=== PATIENT | female | born 1955 | race Caucasian/White ===

== ENCOUNTER 2019-04-17 08:51 | Day surgery (SDC) | payer OTHER ==
[2019-04-16 15:08] VITALS: BMI 40.4
--- NOTE | 2019-04-17 07:32 | OP ---
Operative Note - Note: Operative Date: 04/17/19 Pre-Operative Diagnosis: Right rotator cuff tear, impingement, biceps tendinopathy Operation: Right shoulder arthroscopy with rotator cuff tear, subacromial decompression, biceps tenodesis Implants: Single loaded q-fix x2, double loaded q-fix x1, 2 healicoil anchors and 2 multifix anchors Post-Operative Diagnosis: Same as Pre-op Surgeon: Jimmy Taylor Account Maintenance Representative: Rubina Gardner Anesthesiologist/ATHLETIC GEAR CUSTODIAN: Dawit Chen Anesthesia: General (Regional plus sedation) Operative Report Dictated: Yes
[2019-04-17] MEDS ORDERED: BUPIVACAINE HCL/PF 0.5% (5 MG/ML) 30 ML VIAL IJ ONE (09:19)
[2019-04-17] MEDS ORDERED: MIDAZOLAM HCL 2 MG/2 ML SINGLE DOSE VIAL ONE ×3 (09:19→11:44)
[2019-04-17] MEDS ORDERED: PROPOFOL 20 ML ONE ×3 (09:28→12:37)
[2019-04-17] MEDS ORDERED: ceFAZolin SODIUM 1 GM VIAL ONE (10:32)
[2019-04-17] MEDS ORDERED: TRANEXAMIC ACID 1000 MG/10 ML VIAL ONE (11:28)
[2019-04-17] MEDS ORDERED: LIDOCAINE 1%/EPI 1:100000 (20 ML MULTI DOSE VIAL) ONE (13:32)
[2019-04-17] MEDS ORDERED: LIDOCAINE 1%/EPI 1:100000 (20 ML MULTI DOSE VIAL) IJ ONE ×2 (13:35)
[2019-04-17] MEDS ORDERED: oxyCODONE HCL 5 MG TABLET PO PRN ×2 (14:20)
[2019-04-17] MEDS ORDERED: ONDANSETRON 4 MG/2 ML VIAL IVPUSH PRN (14:20)
[2019-04-17] MEDS ORDERED: PROMETHAZINE HCL 25 MG/1 ML VIAL IVPUSH PRN (14:20)
[2019-04-17 14:45] VITALS: TEMP 97.6
[2019-04-17 16:49] VITALS: BP 115/80; PULSE 86
--- NOTE | 2019-04-17 18:54 | OP ---
DATE OF OPERATION: 04/17/2019 PREOPERATIVE DIAGNOSIS: Right shoulder rotator cuff tear, impingement, biceps tendinopathy. POSTOPERATIVE DIAGNOSIS: Right shoulder rotator cuff tear, impingement, biceps tendinopathy. PROCEDURE: Right shoulder arthroscopy with biceps tenodesis, rotator cuff repair, subacromial decompression. SURGEON: Jimmy Taylor MD EMT P: CHETAN Espinoza, whose skillful assistance was necessary for the safe and timely performance of this procedure. Ms. Gardner was able to provide limb positioning, retraction, assisted in driving the camera, suture passage, as well as suture fixation. ANESTHESIA: Regional plus sedation. POSTOPERATIVE CONDITION: Stable. COMPLICATIONS: None. IMPLANTS: Single loaded Q-Fix x2, double-loaded Q-Fix x1. We used 2 Healicoil and 2 Multifix anchors. ESTIMATED BLOOD LOSS: 30 mL INDICATIONS: This is a pleasant 63-year-old female who had been having shoulder pain for quite some time. She was found to have a full-thickness retracted rotator cuff tear. Treatment options were discussed with non-operative and postoperative management. Being that the patient already had not done well with non-operative care, she elected for surgery. Surgical risks were reviewed in detail including bleeding, infection, neurovascular injury, need for further surgery, postoperative pain and stiffness, retear, progression of osteoarthritis. We discussed medical risks such as heart attack, stroke, DVT, PE and . I reviewed in length the degree of rehabilitation protocol. I addressed all the patient's questions and concerns. She voiced understanding and agreed to proceed. PROCEDURE: Patient was brought to the operating room after administration of a regional block in the preoperative holding area. She was placed in the beach chair position while being careful to pad all the bony prominences and maintain the cervical spine in neutral position. The right upper extremity was then prepped and draped in the usual sterile fashion. A preoperative dose of antibiotics was given. Timeout procedure was performed. The bony landmarks were then marked out. A posterior viewing portal was established with an 11 blade. The arthroscope was passed into the glenohumeral joint. Examination of the joint demonstrated minimal articular wear on the humeral and glenoid surfaces. There was slight fraying about the labrum. The rotator cuff attachment was diffusely frayed from the top of the subscapularis extending along the supraspinatus and then to where the infraspinatus attachment would be, though a gap was seen where the infraspinatus was. An anterior portal was established under spinal needle localization. Examination of the labrum demonstrated no gross tearing on the anterior, inferior and posterior labrums. There was partial-thickness tearing of the superior labrum. The subscapularis was examined demonstrating tearing at its upper border. The lower border appeared intact. The cannula was now placed in the 2nd anterolateral portal. The lesser tuberosity was now debrided. A Q-Fix anchor, single-loaded, was now drilled into the superior aspect of the lesser tuberosity. A first-pass suture device was now used to place a luggage-tag type suture through the superior aspect of the subscapularis. This was then tied in place,reducing the footprint into place. The biceps tendon was now placed for the tag suture. It was then released as tendinopathy was noted on the preoperative films. Intrarticular portion of the biceps was unremarkable. The arthroscope was now passed into the subacromial space. Here, the greater tuberosity was debrided utilizing a shaver, as well as electrocautery by utilizing the lateral portal with the cannula. At this point it became apparent that there was a more superficial lamina of the supraspinatus, which was still attached, the deeper lamina had been detached and retracted along with the infraspinatus posterior medial. Utilizing krnathi, as well as electrocautery, bursectomy was performed. The shaver was used to debride the undersurface of the acromion, which was hooked. The undersurface of the clavicle was coplaned as well. The posterior leaf of the rotator cuff was now grasped, and found to be mobile to the greater tuberosity with no tension. Following mobilization of the tendon, a tack suture was placed in the anterior corner of the posterior leaf. At this point under the attached portion of the supraspinatus at the most anterior portion of the greater tuberosity, a Q-Fix anchor was inserted. Two sutures were passed under the delaminated portion and the other pair was passed through the tendon itself. The sutures that were passed under were now passed in horizontal mattress fashion through the anterior portion of the under leaflet of the supraspinatus. This was then tied, bringing the supraspinatus back towards its anatomic location. The sutures to the more superficial leaflet were then tied to bring that down over the reduced under leaflet. Two medial row anchors were now placed using the punch. These were then passed utilizing a fiber link in 4 separate passes from the anterior to the posterior aspect of the cuff. The suture pair from each anchor was then tied medially. This further reduced the cuff down. In order to provide better fixation over the greater tuberosity, the suture tapes from both the anterior and posterior anchor were then passed into a crossing pattern. These were then loaded along with the additional sutures from the anterior repair, as well as the luggage tag into a lateral row and crossing pattern. Two lateral row anchors were then inserted securing the rotator cuff down firmly across the entirety of the greater tuberosity. The shoulder was now passed through a range of motion and the rotator cuff repair was seen to be stable. At this point the excess fluid was withdrawn from the joint. The portals with the exception of the anterior portal were sutured using nylon. The skin was now reprepped. An incision was planned over the inferior pectoralis tendon. This was carried through the skin to the subcutaneous tissue. Electrocautery was used to main hemostasis. Blunt spreading was used to expose the fascia. Finger dissection was used. We then proceeded under the pectoralis tendon down to the bicipital groove. A [place] elevator was then passed up the bicipital groove freeing the biceps from the groove itself. The biceps was now retrieved off the anterior limb. The superior wound was now closed. The bicipital groove was now rasped to provide a good healing surface. An additional Q-Fix anchor was now drilled into the groove. The suture was then passed in whipstitch fashion to the biceps. Utilizing the beulah technique, the biceps was drawn back into the groove and then the sutures were tied securing the biceps, as well as the bicipital groove. The wound was irrigated. Subcutaneously, a 2-0 Vicryl was used. The skin was closed with 4-0 nylon. Sterile dressings were placed. The patient was transferred to the recovery room, after placing her in a sling, in stable condition. Remy [id number] MTDD
--- NOTE | 2019-04-21 14:51 | PATH ---
Surgical Pathology Report Patient Name: BRENTON GALINDO Med. Rec. #: [id number] /Age/Gender: 1955 (Age: 63) / F Account: [id number] Location: [facility] Taken: 04/17/2019 Received: 04/17/2019 Reported: 04/21/2019 Physicians: Jimmy Taylor M.D. Specimen(s) Received RIGHT BICEP TENDON Clinical History Right shoulder rotator cuff tear Final Diagnosis RIGHT BICEPS TENDON, EXCISIOAL BIOPSY: PORTION OF TENDINOUS TISSUE WITH FOCAL FIBROSIS AND DEGENERATIVE CHANGE. Electronically Signed Malvin Amaya M.D. Gross Description Received in formalin labeled "right biceps tendon," is a 4.5 x 0.7 x 0.2 cm springer portion of fibrous tissue, consistent with a portion of tendon. Bookie sections are submitted in one cassette. /04/18/2019 saudi04/18/2019
== END 2019-04-17 16:40 | disposition home or self-care (01) ==
LOC: FASU 08:51
PROVIDERS: ATTEND Orthopaedic Surgery Sports Medicine
PROC: 0RNJ4ZZ Release Right Shoulder Joint, Percutaneous Endoscopic Approach (ICD-10-PCS; 2019-04-17)
PROC: 0LQ14ZZ Repair Right Shoulder Tendon, Percutaneous Endoscopic Approach (ICD-10-PCS; principal; 2019-04-17 10:49)
PROC: 0LS14ZZ Reposition Right Shoulder Tendon, Percutaneous Endoscopic Approach (ICD-10-PCS; 2019-04-17 10:49)
DX: M75.121 Complete rotator cuff tear or rupture of right shoulder, not specified as traumatic (principal); M75.21 Bicipital tendinitis, right shoulder; M75.41 Impingement syndrome of right shoulder
CPT/HCPCS: 88304-TC; 94760

== ENCOUNTER 2019-10-30 08:21 | Day surgery (SDC) | payer OTHER ==
[2019-10-22 17:09] VITALS: BMI 34.6
--- NOTE | 2019-10-30 07:42 | OP ---
Operative Note - Note: Operative Date: 10/30/19 Pre-Operative Diagnosis: Right shoulder rotator cuff tear Operation: Right shoulder rotator cuff repair with superor capsule reconstruction Post-Operative Diagnosis: Same as Pre-op Surgeon: Jimmy Taylor Plug Overwrap Machine Tender: Rubina Gardner Anesthesia: General Operative Report Dictated: Yes
[2019-10-30] MEDS ORDERED: ACETAMINOPHEN 325 MG TABLET (FP) PO PRN (11:13)
[2019-10-30] MEDS ORDERED: ONDANSETRON 4 MG/2 ML VIAL IVPUSH PRN (11:13)
[2019-10-30] MEDS ORDERED: oxyCODONE HCL 5 MG TABLET PO PRN (11:13)
[2019-10-30] MEDS ORDERED: LACTATED RINGERS SOLUTION 1,000 ML IV SCH (11:15)
[2019-10-30] MEDS ORDERED: MIDAZOLAM HCL 2 MG/2 ML SINGLE DOSE VIAL ONE (11:29)
[2019-10-30] MEDS ORDERED: ROPIVACAINE HCL 0.5% 30ML VIAL ONE (11:30)
[2019-10-30] MEDS ORDERED: EPINEPHrine 1:1,000 1 MG/1 ML - 30ML VIAL (INJECTION) ONE ×2 (11:31→14:46)
[2019-10-30] MEDS ORDERED: PROPOFOL 20 ML ONE (11:46)
[2019-10-30] MEDS ORDERED: ceFAZolin SODIUM 1 GM VIAL ONE (12:15)
[2019-10-30] MEDS ORDERED: ePHEDrine SULFATE 50 MG/1 ML AMPULE ONE ×2 (12:18→13:06)
[2019-10-30] MEDS ORDERED: ONDANSETRON 4 MG/2 ML VIAL ONE (12:21)
[2019-10-30] MEDS ORDERED: DEXAMETHASONE SOD PHOSPHATE 4 MG/1 ML VIAL ONE (12:21)
[2019-10-30] MEDS ORDERED: TRANEXAMIC ACID 1000 MG/10 ML VIAL ONE (12:26)
[2019-10-30] MEDS ORDERED: EPHEDRINE SULFATE/0.9% NACL/PF 50 MG/10 ML SYRINGE NR ONE (13:06)
[2019-10-30] MEDS ORDERED: ACETAMINOPHEN INJECTION 100 ML IVPB ONE (16:01)
[2019-10-30 17:11] VITALS: PULSE 90; TEMP 97.8
--- NOTE | 2019-10-30 17:24 | OP ---
DATE OF OPERATION: 10/30/2019 PREOPERATIVE DIAGNOSIS: Right shoulder recurrent rotator cuff tear. POSTOPERATIVE DIAGNOSIS: Right shoulder recurrent rotator cuff tear. PROCEDURE: Right shoulder arthroscopy, extensive debridement of glenohumeral and subacromial spaces, severe capsular reconstruction. SURGEON: Jimmy Taylor MD. MAILING SECTION CLERK: CHETAN Espinoza, physician office assistant receptionist, whose skillful assistance was necessary for the safe and timely performance of this procedure. Ms. Gardner was able to provide limb positioning, retraction, assist in driving the camera, passing sutures, as well as the insertion of orthopedic fixation hardware. ANESTHESIA: Regional plus general. POSTOPERATIVE CONDITION: Stable. COMPLICATIONS: None. IMPLANTS: Arthrex SwiveLock x4 with 1 discarded SwiveLock, [employer] Q-Fix anchor x1, Arthrex SutureTak x3. INDICATION: This is a pleasant woman who had previously undergone rotator cuff repair. She had been developing increased pain and dysfunction, and was found to have a recurrent tear. She was initially tried at physical therapy, but did not improve. Treatment options were discussed including nonoperative as well as operative management. Operative risks were reviewed in detail including bleeding, infection neurovascular injury, need for further surgery, postoperative pain and stiffness, recurrent tear or failure of the graft itself. We reviewed medical risks such as heart attack, stroke, DVT, PE and . I addressed the use of perioperative DVT and antibiotic prophylaxis. I reviewed the lengthy rehabilitation protocol. I addressed all questions and concerns. She voiced understanding, and elected to proceed. DESCRIPTION OF PROCEDURE: The patient was brought to the operating room where general anesthesia was administered. She had been previously given a block in the preoperative holding area. She was then placed into the beach chair position, careful to pad all bony prominences. The hips were placed in slight flexion. The neck was maintained in neutral cervical positioning. The patient was then prepped and draped in the usual sterile fashion. A perioperative dose of antibiotics was given, and the usual timeout procedure was performed. The arm was examined, demonstrating full range of motion. The right shoulder landmarks were then marked out. A posterior viewing portal was established. The arthroscope was passed into the glenohumeral joint. Examination of the glenoid and humeral surfaces demonstrated mild articular wear. Examining the subscapularis demonstrated it was intact with a little bit of fraying. The supraspinatus and infraspinatus were fully torn and withdrawn. Multiple sutures from the previous repair were sitting within the subacromial/joint space. Utilizing graspers, biters, and other arthroscopic tools as well including the shaver, an anterior portal was established and then these tools were used to remove the suture fragments. After removing the sutures, some of the synovitis anteriorly was debrided as well. The remaining rotator cuff was debrided. The arthroscope was now passed just medial to the glenoid. Here the RF probe was used to create a trough medial to the labrum. The shaver was then used to go down to bleeding bone. A rasp was used more posteriorly for the same purpose. Attention was then turned to the greater tuberosity. Here, some fragments of the previous anchor were removed using the grasper. The bony surface was debrided down to bleeding bone here as well. Attention was then turned back to the glenoid. Here, an anterior anchor was placed using anterior portal. A superior anchor was placed with percutaneous technique and spinal needle localization from the portal, and a posterior superior anchor was used from a posterolateral percutaneous portal again using spinal needle localization. All anchors achieved good purchase. Attention was now turned back to the greater tuberosity. Here, an anterior medial row anchor was now punched and inserted. The first anchor, which was 4.75 mm, the anchor was inserted. However, poor purchase was achieved, and the anchor was removed. It was decided to go more into the subchondral region just adjacent to the articular surface where the bone had better quality. A 5.5-mm anchor was inserted here, and good purchase was achieved. The posterior medial anchor was inserted without complication. The measuring tool was then used to map out the distances between the various anchors. Graft was now opened and then marked out and trimmed down to fit the measured dimensions. At this time, the medial sutures were passed through the graft, maintaining care to keep the graft off skin surface. The greater tuberosity sutures were then passed through the graft as well. The graft was now shuttled into the joint. Utilizing the knotless technique, 3 medial anchors were tightened, securing the graft over the glenoid. The lateral sutures were now passed into a crossing pattern. Each was then punched and inserted to an anterior and then posterior lateral row anchor. This secured the graft firmly on the greater tuberosity. Attention was now turned anteriorly. A simple suture was now passed through the anterior portion of the graft and then through the anterior portion of the remaining supraspinatus. It was not tied yet. A Q-Fix anchor was now drilled laterally into the greater tuberosity. This was passed in 2 separate passes, in simple sutures through the remaining supraspinatus tissue, reducing it down to the lateral aspect of the footprint. The previously passed suture was then tied, securing the superior supraspinatus down to the inferior graft. Attention was then turned posteriorly. Here, 2 simple sutures were used to pass through the remaining rotator cuff and then through the posterior aspect of the graft, further securing the graft in place. At this point, some of the residual subacromial tissue was debrided down to bleeding bone. The excess fluid was now withdrawn from the joint. The portals were sutured using 3-0 nylon. Sterile dressings were placed. The patient was extubated, transferred to recovery room in stable condition. Remy [id number]
[2019-10-30 18:01] VITALS: BP 102/63
== END 2019-10-30 18:06 | disposition home or self-care (01) ==
LOC: FASU 08:21
PROVIDERS: ATTEND Orthopaedic Surgery Sports Medicine
PROC: 0RQJ4ZZ Repair Right Shoulder Joint, Percutaneous Endoscopic Approach (ICD-10-PCS; 2019-10-30)
PROC: 0RBJ4ZZ Excision of Right Shoulder Joint, Percutaneous Endoscopic Approach (ICD-10-PCS; principal; 2019-10-30 12:25)
DX: M75.101 Unspecified rotator cuff tear or rupture of right shoulder, not specified as traumatic (principal)
CPT/HCPCS: 94760; J0131

== ENCOUNTER 2020-08-19 06:17 | Day surgery (SDC) | payer OTHER ==
[2020-08-12 12:39] VITALS: BMI 35.7
[2020-08-19] MEDS ORDERED: ROPIVACAINE HCL 0.5% 30ML VIAL ONE (06:42)
[2020-08-19] MEDS ORDERED: MIDAZOLAM HCL 2 MG/2 ML SINGLE DOSE VIAL ONE ×3 (06:42→09:11)
[2020-08-19] MEDS ORDERED: DEXAMETHASONE SOD PHOSPHATE 10 MG/1 ML VIAL ONE (07:27)
[2020-08-19] MEDS ORDERED: ceFAZolin SODIUM 1 GM VIAL ONE (08:13)
[2020-08-19] MEDS ORDERED: DEXAMETHASONE SOD PHOSPHATE 4 MG/1 ML VIAL ONE (08:13)
[2020-08-19] MEDS ORDERED: ONDANSETRON 4 MG/2 ML VIAL ONE (08:13)
[2020-08-19] MEDS ORDERED: PROPOFOL 20 ML ONE ×5 (08:16→09:59)
[2020-08-19] MEDS ORDERED: SUCCINYLCHOLINE CHLORIDE 200 MG/10 ML SYRINGE ONE (08:16)
[2020-08-19 10:53] VITALS: TEMP 97.3
[2020-08-19 12:22] VITALS: BP 128/84; PULSE 78
[2020-08-19] MEDS ORDERED: ONDANSETRON 4 MG/2 ML VIAL IVPUSH PRN (14:32)
[2020-08-19] MEDS ORDERED: oxyCODONE HCL 5 MG TABLET PO PRN (14:32)
[2020-08-19] MEDS ORDERED: LACTATED RINGERS SOLUTION 1,000 ML IV SCH (14:45)
== END 2020-08-19 12:20 | disposition home or self-care (01) ==
LOC: FASU 06:17
PROVIDERS: ATTEND Orthopaedic Surgery Sports Medicine
PROC: 0RHJ44Z Insertion of Internal Fixation Device into Right Shoulder Joint, Percutaneous Endoscopic Approach (ICD-10-PCS; 2020-08-19)
PROC: 0LQ14ZZ Repair Right Shoulder Tendon, Percutaneous Endoscopic Approach (ICD-10-PCS; principal; 2020-08-19 08:28)
DX: M75.121 Complete rotator cuff tear or rupture of right shoulder, not specified as traumatic (principal)
CPT/HCPCS: 29827; C1713; J1100